=== PATIENT | male | born 1995 | race African-American/Black ===

== ENCOUNTER 2022-01-24 23:07 | Emergency (ER) | payer BC ==
[2022-01-24] MEDS ORDERED: Lorazepam 1 MG TAB ONE (23:30)
== END 2022-01-25 00:19 | disposition home or self-care (01) ==
LOC: CSHERS 23:07
DX: F41.0 Panic disorder [episodic paroxysmal anxiety] (principal); I10 Essential (primary) hypertension; F17.210 Nicotine dependence, cigarettes, uncomplicated; Z79.899 Other long term (current) drug therapy
CPT/HCPCS: 71045; 93005